=== PATIENT | female | born 1975 | race Caucasian/White ===

== ENCOUNTER 2022-04-16 06:34 | Day surgery (SDC) | payer BC ==
[~2022-04-16] VITALS: Ht 157.5 cm; Wt 73.0 kg
[2022-04-16 07:09] LABS: HCG,QUAL RESULT NEGATIVE (NEGATIVE)
[2022-04-16] MEDS ORDERED: BENZOCAINE 20% 0.5mL UD SPRAY MM ONE (07:58)
[2022-04-16] MEDS: MIDAZOLAM HCL 5 MG/5 ML VIAL ONE ×3 (09:14→09:20)
[2022-04-16] MEDS: MEPERIDINE 100 MG INJ. 100 MG/ML VIAL ONE ×3 (09:14→09:32)
[2022-04-16] MEDS: DIPHENHYDRAMINE INJ 50 MG/ML VIAL ONE ×2 (09:20→09:24)
[2022-04-16] MEDS ORDERED: ONDANSETRON HCL 4 MG/2 ML VIAL ONE (09:34)
[2022-04-16 13:25] VITALS: BP_SYST 122
== END 2022-04-16 11:22 | disposition home or self-care (01) ==
LOC: SDS 06:34 → SMU 06:35 → SDS 11:22
PROVIDERS: ATTEND Internal Medicine
DX: D50.9 Iron deficiency anemia, unspecified (principal); K64.8 Other hemorrhoids; K29.50 Unspecified chronic gastritis without bleeding; I10 Essential (primary) hypertension; Z79.899 Other long term (current) drug therapy; Z20.822 Contact with and (suspected) exposure to COVID-19
CPT/HCPCS: 36415; 43239; 45378; 84703; 88305; 88312; 88313; 99152; 99153; U0003; G0378; J1200; J2250; J2405; J2175